=== PATIENT | male | born 1990 | race Caucasian/White ===

== ENCOUNTER 2018-08-28 22:44 | Emergency (ER) | payer MEDICAID ==
[~2018-08-28] VITALS: Ht 167.6 cm; Wt 95.3 kg
[2018-08-28 22:45] VITALS: BP 127/72
--- NOTE | 2018-08-28 23:01 | Emergency Room Report ---
History of Present Illness General Chief Complaint: Alcohol Intoxication Source: EMS Present Illness HPI Is a 22-year-old male coming in as a Nam Kaleb for chief complaint of alcohol intoxication/altered mental status. He was found on the sidewalk. There was alcohol nearby. No trauma. No other complaint. Unable to get any history because of his alcohol intoxication. Allergies: Coded Allergies: No Known Allergies (Unverified , 08/28/18) Patient History Past Medical History: see triage record, old chart reviewed, unable to obtain Past Surgical History: unable to obtain Pertinent Family History: unable to obtain Social History: Reports: alcohol use Immunizations: other Reviewed Nursing Documentation: PMH: Agreed; PSxH: Agreed Nursing Documentation-PMH Past Medical History: No Stated History Review of Systems All Other Systems: limited - secondary to intoxication Physical Exam Vital Signs Date Time Temp Pulse Resp B/P (MAP) Pulse Ox O2 Delivery O2 Flow Rate FiO2 08/28/18 22:39 98.6 92 18 127/72 99 98.6 vitals normal Sp02 EP Interpretation: reviewed, normal General Appearance: well appearing, other - severely intoxicated Head: normocephalic, atraumatic Eyes: bilateral eye PERRL, bilateral eye EOMI ENT: hearing grossly normal, normal pharynx Neck: full range of motion, supple, no meningismus Respiratory: chest non-tender, lungs clear, normal breath sounds Cardiovascular #1: regular rate, rhythm, no murmur Gastrointestinal: normal bowel sounds, non tender, no mass, no organomegaly, no bruit, non-distended Musculoskeletal: back normal, normal range of motion Neurologic: grossly normal Skin: warm/dry Medical Decision Making Diagnostic Impression: Primary Impression: Acute alcoholic intoxication Qualified Codes: F10.929 - Alcohol use, unspecified with intoxication, unspecified ER Course Patient presents with alcohol intoxication. No evidence of any trauma to warrant CT scan or x-ray. We'll discharge in the morning once he is more clinically sober. Last Vital Signs Date Time Temp Pulse Resp B/P (MAP) Pulse Ox O2 Delivery O2 Flow Rate FiO2 08/28/18 22:39 98.6 92 18 127/72 99 98.6 Status: improved Disposition: HOME, SELF-CARE Condition: Stable Referrals: NOT CHOSEN IPA/MD,REFERRING (PCP) Patient Instructions: Alcohol Intoxication, [id number] Additional Instructions: Abstain from drinking alcohol. Go to rehabilitation. Follow-up with your doctor in 7 days. Return if worse. Vini Brennan MD Aug 28, 2018 23:01
[2018-08-29] VITALS (7 sets, daily range): BP systolic 110–125; BP diastolic 62–72
== END 2018-08-29 07:38 | disposition home or self-care (01) ==
LOC: EDBD 22:44 → EMR 22:52 → MERGE 22:52 → EDBD 22:52 → EMR 08-29 07:38
DX: F10.929 Alcohol use, unspecified with intoxication, unspecified (principal)
CPT/HCPCS: 36415; 80329; 99283

== ENCOUNTER 2018-12-26 18:18 | Emergency (ER) | payer MEDICAID ==
[~2018-12-26] VITALS: Ht 170.2 cm; Wt 72.6 kg
[2018-12-26 18:26] VITALS: BP 127/85
[2018-12-26] MEDS ORDERED: GABAPENTIN100 MG ORAL (18:26)
[2018-12-26] MEDS ORDERED: SEROQUEL25 MG ORAL (18:26)
--- NOTE | 2018-12-26 18:30 | NUR ---
ED Nurse Note: Patient was brought in to ER from street c/o non-radiating chest pain 08/21. Pt is slow and disoriented on speaking to nurse, however, pt was able to verbalize person, place, time but not purpose. skin warm to touch, but intact.
--- NOTE | 2018-12-26 18:32 | NUR ---
ED Nurse Note: Pt denied alcohol or drug use.
[2018-12-26 19:12] LABS: BASOPHILS % (AUTO) 3.4 % (0.0-2.0); EOSINOPHILS % (AUTO) 0.6 % (0.0-3.0); HEMATOCRIT 44.7 % (42.0-52.0); HEMOGLOBIN 14.9 G/DL (14.2-18.0); LYMPHOCYTES % (AUTO) 50.9 % (20.0-45.0); MEAN CORPUSCULAR VOLUME 83 FL (80-99); NEUTROPHILS % (AUTO) 40.1 % (45.0-75.0); PLATELET COUNT 353 K/UL (150-450); RED BLOOD COUNT 5.36 M/UL (4.70-6.10); RED CELL DISTRIBUTION WIDTH 13.2 % (11.6-14.8); WHITE BLOOD COUNT 5.2 K/UL (4.8-10.8)
--- NOTE | 2018-12-26 19:24 | NUR ---
HAND-OFF: Report given to MALLORIE Beck. All the orders have been carried. waiting for lab results.
[2018-12-26 19:30] LABS: ANION GAP 13 mmol/L (5-15); BLOOD UREA NITROGEN 8 mg/dL (7-18); CALCIUM 8.4 MG/DL (8.5-10.1); CARBON DIOXIDE 28 MMOL/L (21-32); CHLORIDE 100 MMOL/L (98-107); CREATININE 0.8 MG/DL (0.55-1.30); POTASSIUM 3.9 MMOL/L (3.5-5.1); SODIUM 141 MMOL/L (136-145)
[2018-12-26 19:40] LABS: ALANINE AMINOTRANSFERASE 110 U/L (12-78); ALBUMIN 4.2 G/DL (3.4-5.0); ALBUMIN/GLOBULIN RATIO 1.1 (1.0-2.7); ALKALINE PHOSPHATASE 71 U/L (46-116); ASPARTATE AMINO TRANSFERASE 66 U/L (15-37); BILIRUBIN,TOTAL 0.5 MG/DL (0.2-1.0); CREATINE KINASE 310 U/L (26-308)
--- NOTE | 2018-12-26 19:40 | Emergency Room Report ---
History of Present Illness General Chief Complaint: Chest Pain Source: Patient, EMS Present Illness HPI Patient presents with chest pain. He states his been going on for a long time. He believes he has a problem with his heart. His been seen at other emergency departments. He denies using drugs or drinking alcohol (however he slurring his words and smells of alcohol). He states it has been several days since he's been able to sleep. He says he was kicked out of his mother's house today. No fevers, chills, palpitations, nausea, vomiting, diarrhea, dysuria, abdominal pain, shortness of breath, visual changes, headache. Apparently he is supposed to be taking gabapentin and Seroquel. According to her medical history he has a history of seizures and IV drug use. He states a Q-tip is been stuck in his right ear for 5 months. Allergies: Coded Allergies: No Known Allergies (Unverified , 02/28/16) Patient History Past Medical History: see triage record Social History: Reports: smoking, alcohol use, drug use Social History Narrative Was living with his mother Reviewed Nursing Documentation: PMH: Agreed; PSxH: Agreed Nursing Documentation-PM Past Medical History: No History, Except For History Of Psychiatric Problem: Yes Hx Seizures: Yes Review of Systems All Other Systems: negative except mentioned in HPI Physical Exam Vital Signs Date Time Temp Pulse Resp B/P (MAP) Pulse Ox O2 Delivery O2 Flow Rate FiO2 12/26/18 18:22 98.4 108 18 147/84 99 Room Air 12/26/18 18:26 100 Sp02 EP Interpretation: reviewed, normal General Appearance: well appearing, no apparent distress, GCS 15, other - Wearing hospital gloves Head: normocephalic Eyes: bilateral eye PERRL, bilateral eye Scleral Injection ENT: moist mucus membranes - Alcohol on breath, other - Cerumen right ear Neck: supple Respiratory: lungs clear, normal breath sounds Cardiovascular #1: regular rate, rhythm Cardiovascular #2: 2+ radial (R) Gastrointestinal: normal inspection, normal bowel sounds, non tender, no mass, non-distended Musculoskeletal: back normal, normal range of motion Neurologic: alert, motor strength/tone normal, DTRs symmetric, other - Ataxia and poor coordination, slurring words, oriented - X2 Psychiatric: no suicidal/homicidal ideation Skin: normal inspection, warm/dry, other - Plethoric Medical Decision Making Diagnostic Impression: Primary Impression: Alcohol abuse Additional Impressions: Chest pain Qualified Codes: R07.9 - Chest pain, unspecified Suspect schizoaffective disorder ER Course Patient presents with chest pain and slurring his words. Differential includes gastritis, GERD, anxiety amongst others. Evaluation will be with EKG, chest x- ray and labs. Patient smells of alcohol but denies she is at this time. EKG with normal sinus rhythm normal EKG rate 97. Labs significant for blood alcohol 425. Chest x-ray no infiltrates. The patient slept here without difficulty. He was ambulatory When he woke. He denied suicidal or homicidal ideation. He requested that Q-tip be removed from his ear. I told him it looked more like wax. A curette was used to dislodge whatever was in the ear however it did not come out. Patient refused further treatment of this. The patient was told he needed to follow-up with Alcoholics Anonymous and also to take his medications as prescribed. Patient stated he wanted to go home and was discharged. Patient stable for outpatient observation and treatment. Laboratory Tests Test 12/26/18 18:40 12/26/18 19:00 Urine Opiates Screen Negative (NEGATIVE) Urine Barbiturates Screen Negative (NEGATIVE) Phencyclidine (PCP) Screen Negative (NEGATIVE) Urine Amphetamines Screen Negative (NEGATIVE) Urine Benzodiazepines Screen Negative (NEGATIVE) Urine Cocaine Screen Negative (NEGATIVE) Urine Marijuana (THC) Screen Negative (NEGATIVE) White Blood Count 5.2 K/UL (4.8-10.8) Red Blood Count 5.36 M/UL (4.70-6.10) Hemoglobin 14.9 G/DL (14.2-18.0) Hematocrit 44.7 % (42.0-52.0) Mean Corpuscular Volume 83 FL (80-99) Mean Corpuscular Hemoglobin 27.7 PG (27.0-31.0) Mean Corpuscular Hemoglobin Concent 33.3 G/DL (32.0-36.0) Red Cell Distribution Width 13.2 % (11.6-14.8) Platelet Count 353 K/UL (150-450) Mean Platelet Volume 5.3 FL (6.5-10.1) L Neutrophils (%) (Auto) 40.1 % (45.0-75.0) L Lymphocytes (%) (Auto) 50.9 % (20.0-45.0) H Monocytes (%) (Auto) 5.0 % (1.0-10.0) Eosinophils (%) (Auto) 0.6 % (0.0-3.0) Basophils (%) (Auto) 3.4 % (0.0-2.0) H Sodium Level 141 MMOL/L (136-145) Potassium Level 3.9 MMOL/L (3.5-5.1) Chloride Level 100 MMOL/L (98-107) Carbon Dioxide Level 28 MMOL/L (21-32) Anion Gap 13 mmol/L (5-15) Blood Urea Nitrogen 8 mg/dL (7-18) Creatinine 0.8 MG/DL (0.55-1.30) Estimate Glomerular Filtration Rate > 60 mL/min (>60) Glucose Level 123 MG/DL (74-106) H Calcium Level 8.4 MG/DL (8.5-10.1) L Total Bilirubin 0.5 MG/DL (0.2-1.0) Aspartate Amino Transferase (AST) 66 U/L (15-37) H Alanine Aminotransferase (ALT) 110 U/L (12-78) H Alkaline Phosphatase 71 U/L (46-116) Total Creatine Kinase 310 U/L (26-308) H Troponin I 0.000 ng/mL (0.000-0.056) Pro-B-Type Natriuretic Peptide 20 pg/mL (0-125) Total Protein 7.9 G/DL (6.4-8.2) Albumin 4.2 G/DL (3.4-5.0) Globulin 3.7 g/dL Albumin/Globulin Ratio 1.1 (1.0-2.7) Serum Alcohol 425 mg/dL EKG Diagnostic Results Rate: normal Rhythm: NSR ST Segments: no acute changes Rhythm Strip Diag. Results EP Interpretation: yes Rhythm: NSR, no PVC's, no ectopy Chest X-Ray Diagnostic Results Chest X-Ray Diagnostic Results : Chest X-Ray Ordered: Yes # of Views/Limited/Complete: 1 View Indication: Chest Pain EP Interpretation: Yes Interpretation: no consolidation, no effusion, no pneumothorax Impression: No acute disease Electronically Signed by: Electronically signed by Peter Frederick MD Last Vital Signs Date Time Temp Pulse Resp B/P (MAP) Pulse Ox O2 Delivery O2 Flow Rate FiO2 12/26/18 23:06 98.4 87 18 120/85 100 Room Air 12/26/18 18:26 100 Status: improved Disposition: HOME, SELF-CARE Condition: Improved Referrals: NON PHYSICIAN (PCP) Peter Frederick MD Dec 26, 2018 19:40
[2018-12-26 23:06] VITALS: BP 120/85
--- NOTE | 2018-12-26 23:06 | NUR ---
ER DISCHARGE NOTE: Patient is cleared to be discharged per ERMD, pt is aox4, on room air, with stable vital signs. pt was given dc and prescription instructions, pt was able to verbalize understanding, pt id band and iv site removed without complications. pt is able to ambulate with steady gait. pt took all belongings. Addendum: 12/27/18 at 0113 by [facility] ED Nurse Note: NO PRESCRIPTION PROVIDED, PT EDUCATION DONE VIA DISCUSSION AND HAND OUT, PT VERBALIZED UNDERSTANDING AND AGREES WITH PLAN, PT ADVISED TO FOLLOW UP WITH PCP.
--- NOTE | 2018-12-27 10:38 | Diagnostic Imaging Report ---
Indication: Chest pain Technique: One view of the chest Comparison: none Findings: Lungs and pleural spaces are clear. Heart size is normal Impression: No acute process
--- NOTE | 2018-12-27 15:06 | Cardiology Report ---
APPROVED REPORT EKG Measurement Heart [id number] Normal sinus rhythm Normal ECG
== END 2018-12-26 23:10 | disposition home or self-care (01) ==
LOC: EDUNIT# 18:18 → EDBD 18:18 → EMR 18:51
DX: R07.9 Chest pain, unspecified (principal); F10.10 Alcohol abuse, uncomplicated
CPT/HCPCS: 36415; 71045; 80053; 80307; 80329; 82550; 83880; 84484; 85025; 93005; 99284